=== PATIENT | male | born 1965 | race Caucasian/White ===

== ENCOUNTER 2025-01-03 12:28 | Outpatient (REF) | payer MEDICAID, SELFPAY ==
--- NOTE | ~2025-01-03 | XR_ITS ---
EXAMINATION: XR HIP, RIGHT CLINICAL INFORMATION: M25.551 - Pain in right hip COMPARISON: None available. TECHNIQUE: AP upright, AP supine, and frog-leg lateral views of the right hip. FINDINGS: Screw plate traverses the right acetabulum from the iliac bone to the ischium. There is bony prominence spanning from the right femoral neck to the acetabular roof region of the pelvis. The distal femoral neck and head are diminutive in size. There is proximal migration of the femur. XR/XR hip RT min 2V IMPRESSION: Deformity right hip joint likely from remote fracture or septic arthritis with screw and plate traversing the region of the acetabular roof through the ischium. There is a large bony prominence extending up from the right femoral neck.. Small deformed sclerotic right femoral head. Electronically signed by: Daniel Cook MD 01/03/2025 03:44 PM EDT
--- OUTSIDE RECORDS SUMMARY | 2025-01-03 12:31 | XMS_ITS | Encounter Summary ---
Author Organization [facility] Address [address] [address] Care Team Providers Care Travel Consultant Name Role Phone Andrés Lozano Primary Care Provider Reason for Visit * Reason Comments Case Management TAYLA Assessment Encounter Details Date Type Department Care Team ([facility] st Contact Info) Description 01/23/2020 Interim Notes [facility] [address] [place] [id number] Jeana Keita, DEANA [address] [place] [address] Social History Tobacco Use Types Packs/Day Years Used Date Smoking Tobacco: Every Day Cigarettes Smokeless Tobacco: Never Alcohol Use Standard Drinks/Week Comments No 0 (1 standard drink = 0.6 oz pur e alcohol) Social Connections Answer Date Recorded Social Connections and Isolation 1 01/23/2020 Financial Resource Strain Answer Date R ecorded Financial Resource Strain 0 2018 Stress Answer Date Recorded Stress 0 01/27/2019 Physical Activity Answer Date Recorded Physical Activity 0 01/27/2019 Food Insecurity Answer Date Recorded Food 2 01/23/2020 Transportation Needs Answer Date Record ed Transportation 0 01/27/2019 Housing Stability Answer Date Recorded Housing 2 01/23/2020 Safety and Environment Answer Date Joao rded Safety 0 01/27/2019 Utilities Answer Date Recorded Utilities 0 01/27/2019 Employment Answer Date Recorded Employment 0 01/27/2019 Sex and Gender Information Value Date Recorded Sex Assigned at Male 09/20/2017 12:01 PM PDT Legal Sex Male 7:45 AM PDT Gender Identity Male 09/20/2017 12:01 PM PDT Sexual Orientation Straight 09/20/2017 12 :01 PM PDT Occupation Industry Job Start Date Job End Date unemployed Not on file Not on file Not on file documented as of this encounter Plan of Treatment Not on file documented as of this encounter Visit Diagnoses Not on filedocumented in this encounter Additional Health Concerns Assessment Noted Time PHQ-9 Depression Total Score: 24 018 3:21 PM PST documented as of this encounter Care Teams Travel Consultant Relationship Specialty Start Date End Date Andrés Lozano PA [address] [place] [address] PCP - General Internal Medicine 06/02/16 documented as of this encounter
== END 2025-01-03 12:29 | disposition home or self-care (01) ==
LOC: HO.HOSX 12:28
PROVIDERS: Visit Provider Physician Assistant
DX: M16.51 Unilateral post-traumatic osteoarthritis, right hip (principal); M25.551 Pain in right hip; Z79.899 Other long term (current) drug therapy
CPT/HCPCS: 73502; 99212

== ENCOUNTER 2025-01-03 14:42 | Outpatient (AMB) | payer MEDICAID, SELFPAY ==
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
[2025-01-03 15:04] VITALS: BMI 38.4
== END 2025-01-03 15:31 | disposition home or self-care (01) ==
PROVIDERS: PCP Dentist General Practice; Visit Provider Physician Assistant
DX: M16.51 Unilateral post-traumatic osteoarthritis, right hip (principal)
CPT/HCPCS: 99203

== ENCOUNTER → 2025-01-03 14:57 | Outpatient (BNV) | payer MEDICAID, SELFPAY | PROVIDERS: Visit Provider Radiology Diagnostic Radiology | DX: M16.51 Unilateral post-traumatic osteoarthritis, right hip (principal) | CPT/HCPCS: 73502 ==